=== PATIENT | male | born 1970 | race Caucasian/White ===

== ENCOUNTER 2016-12-05 22:35 | Inpatient (IN) | payer BC ==
[~2016-12-05] VITALS: Ht 180.3 cm; Wt 117.5 kg
[~2016-12-05 22:35] MED LIST: CIPROFLOXACIN500 MG PO; OMEPRAZOLE40 MG PO; VICODIN1 TAB PO
[2016-12-05] MEDS ORDERED: SIMVASTATIN5 MG PO (22:44)
[2016-12-05] MEDS ORDERED: FISH OIL500 M2 PO (22:45)
[2016-12-05] MEDS ORDERED: ZOLOFT25 MG PO (22:45)
[2016-12-05] MEDS ORDERED: ASPIRIN CHEWABL81 MG PO (22:45)
[2016-12-05 22:47] VITALS: BP 156/96
[2016-12-05 23:08] LABS: BASO % 0.1 % (0.0-1.0); EOS % 0.6 % (1.0-4.0); HEMATOCRIT 47.6 % (42.0-52.0); HEMOGLOBIN 16.6 g/dl (14.0-18.0); LYMPH % 14.6 % (27.0-41.0); MEAN CELL VOLUME 85.9 fl (80.0-94.0); MEAN CORPUSCULAR HGB CONC 34.9 g/dl (33.0-37.0); MEAN PLATELET VOLUME 9.1 fl (9.6-12.3); MONO # 0.7 10*3/uL (0.1-1.0); MONO % 9.2 % (3.0-9.0); NEUT # 5.4 10*3/uL (2.3-7.9); NEUT % 75.1 % (47.0-73.0); PLATELET COUNT AUTOMATED 178 10*3/uL (130-400); RED BLOOD COUNT 5.54 10*6/uL (4.50-5.90); RED CELL DISTRI WIDTH 12.7 % (0-14.5); WHITE BLOOD COUNT 7.1 10*3/uL (4.8-10.8)
[2016-12-05 23:22] LABS: ALBUMIN 3.8 gm/dl (3.1-4.5); ALKALINE PHOSPHATASE 114 U/L (45-117); BILIRUBIN, TOTAL 1.7 mg/dl (0.2-1.0); BUN 17 mg/dl (7-24); CARBON DIOXIDE 25 mmol/L (21-32); CHLORIDE 106 mmol/L (98-107); EST GLOM FILT AFRICAN AMERICAN > 60 ml/min; GLUCOSE 148 mg/dL (65-99); POTASSIUM 3.7 mmol/L (3.5-5.1); SGOT/AST 325 IU/L (3-35); SGPT/ALT 573 U/L (12-78); SODIUM 140 mmol/L (136-145); TOTAL PROTEIN 7.9 gm/dL (6.4-8.2)
[2016-12-06 01:33] VITALS: BP 142/87
[2016-12-06 01:45] VITALS: BP 160/88
[2016-12-06] MEDS ORDERED: FISH OIL 1,001000 MG PO (02:05)
[2016-12-06] MEDS ORDERED: ZOLOFT100 MG PO (02:06)
[2016-12-06] MEDS ORDERED: SIMVASTATIN20 MG PO (02:07)
[2016-12-06 06:11] LABS: BASO % 0.3 % (0.0-1.0); EOS # 0.1 10*3/uL (0.0-0.4); EOS % 1.1 % (1.0-4.0); HEMATOCRIT 45.9 % (42.0-52.0); HEMOGLOBIN 15.5 g/dl (14.0-18.0); LYMPH # 1.3 10*3/uL (1.3-4.4); LYMPH % 19.1 % (27.0-41.0); MEAN CELL VOLUME 88.6 fl (80.0-94.0); MEAN CORPUSCULAR HGB 29.9 pg (27.0-31.0); MEAN CORPUSCULAR HGB CONC 33.8 g/dl (33.0-37.0); MEAN PLATELET VOLUME 9.1 fl (9.6-12.3); MONO # 0.7 10*3/uL (0.1-1.0); MONO % 10.3 % (3.0-9.0); NEUT # 4.5 10*3/uL (2.3-7.9); NEUT % 68.9 % (47.0-73.0); PLATELET COUNT AUTOMATED 162 10*3/uL (130-400); RED BLOOD COUNT 5.18 10*6/uL (4.50-5.90); RED CELL DISTRI WIDTH 12.8 % (0-14.5); WHITE BLOOD COUNT 6.6 10*3/uL (4.8-10.8)
[2016-12-06 06:38] LABS: ALBUMIN 3.3 gm/dl (3.1-4.5); BILIRUBIN, TOTAL 1.4 mg/dl (0.2-1.0); BUN 15 mg/dl (7-24); CARBON DIOXIDE 29 mmol/L (21-32); CHLORIDE 105 mmol/L (98-107); CHOLESTEROL 120 mg/dL (<200); EST GLOM FILT AFRICAN AMERICAN > 60 ml/min; GLUCOSE 122 mg/dL (65-99); MAGNESIUM 2.1 mg/dL (1.5-2.1); PHOSPHOROUS 3.2 mg/dL (2.5-4.9); SGOT/AST 225 IU/L (3-35); SGPT/ALT 537 U/L (12-78); SODIUM 141 mmol/L (136-145); TRIGLYCERIDES 112 mg/dl (<150); VLDL CHOLESTEROL 22 mg/dL (6-40)
[2016-12-06 06:45] LABS: ALKALINE PHOSPHATASE 102 U/L (45-117); FREE T4 0.93 ng/dl (0.76-1.46); HDL CHOLESTEROL 46 mg/dl (40-60); LDL CHOLESTEROL 52 mg/dL (9-159)
[2016-12-06 06:46] LABS: PROTHROMBIN TIME 10.3 SECONDS (9.0-12.4)
[2016-12-06 08:00] LABS: VITAMIN D, 25-HYDROXY 8.8 ng/mL (30-100)
[2016-12-06 08:01] LABS: FOLIC ACID 13.87 ng/mL (>5.38)
[2016-12-07 15:04] LABS: HEPATITIS C VIRUS ANTIBODY 0.1 s/co (0.0-0.9)
== END 2016-12-06 10:43 | disposition home or self-care (01) | DRG 392 ==
LOC: ED 22:35 → EDHOLD 12-06 01:27 → 4E 12-06 01:31
PROVIDERS: Internal Medicine; Physician Assistant
DX: A08.4 Viral intestinal infection, unspecified (principal); E44.0 Moderate protein-calorie malnutrition; K76.0 Fatty (change of) liver, not elsewhere classified; B17.9 Acute viral hepatitis, unspecified; F33.9 Major depressive disorder, recurrent, unspecified; K21.9 Gastro-esophageal reflux disease without esophagitis; E78.00 Pure hypercholesterolemia, unspecified; E66.09 Other obesity due to excess calories; G47.30 Sleep apnea, unspecified; R73.9 Hyperglycemia, unspecified; D72.825 Bandemia; E74.39 Other disorders of intestinal carbohydrate absorption; Z68.36 Body mass index [BMI] 36.0-36.9, adult; Z79.82 Long term (current) use of aspirin; Z88.0 Allergy status to penicillin; Z82.49 Family history of ischemic heart disease and other diseases of the circulatory system; Z82.61 Family history of arthritis; Z80.8 Family history of malignant neoplasm of other organs or systems; Z90.49 Acquired absence of other specified parts of digestive tract; Z79.899 Other long term (current) drug therapy; Z98.52 Vasectomy status; Z83.3 Family history of diabetes mellitus

== ENCOUNTER → 2016-12-08 | Outpatient (CLI) | payer BC ==
[~2016-12-08] MED LIST changes: +ASPIRIN CHEWABL81 MG PO; +FISH OIL 1,001000 MG PO; +FISH OIL500 M2 PO; +SIMVASTATIN20 MG PO; +SIMVASTATIN5 MG PO; +ZOLOFT100 MG PO; +ZOLOFT25 MG PO
[2016-12-08 15:01] LABS: ALBUMIN 3.5 gm/dl (3.1-4.5); BILIRUBIN, DIRECT 0.2 mg/dL (0.0-0.2); BILIRUBIN, TOTAL 0.8 mg/dl (0.2-1.0); TOTAL PROTEIN 7.4 gm/dL (6.4-8.2)
== END | disposition home or self-care (01) ==
LOC: LAB 14:17
PROVIDERS: Nurse Practitioner Family
DX: R79.89 Other specified abnormal findings of blood chemistry (principal)

== ENCOUNTER 2023-09-17 00:03 | Emergency (ER) | payer OTHER ==
[~2023-09-17] VITALS: Ht 180.3 cm; Wt 119.7 kg
[2023-09-17] MEDS ORDERED: Ondansetron Hydrochloride 4 MG/2 ML VIAL IV ONE (01:55)
[2023-09-17] MEDS ORDERED: SODIUM CHLORIDE 0.9% 1,000 ML IV ONE (01:55)
[2023-09-17 02:03] LABS: BASO % 0.3 % (0.0-1.0); EOS # 0.1 10*3/uL (0.0-0.4); EOS % 0.7 % (1.0-4.0); HEMATOCRIT 46.5 % (42.0-52.0); LYMPH # 0.9 10*3/uL (1.3-4.4); LYMPH % 8.3 % (27.0-41.0); MEAN CELL VOLUME 86.6 fl (80.0-94.0); MEAN CORPUSCULAR HGB CONC 34.6 g/dl (33.0-37.0); MEAN PLATELET VOLUME 8.8 fl (9.6-12.3); MONO # 0.5 10*3/uL (0.1-1.0); MONO % 4.8 % (3.0-9.0); NEUT # 9.7 10*3/uL (2.3-7.9); NEUT % 85.6 % (47.0-73.0); PLATELET COUNT AUTOMATED 208 10*3/uL (130-400); RED BLOOD COUNT 5.37 10*6/uL (4.50-5.90); RED CELL DISTRI WIDTH 12.1 % (0-14.5); WHITE BLOOD COUNT 11.3 10*3/uL (4.8-10.8)
[2023-09-17] MEDS ORDERED: EFFIENT10 M1 PO (02:13)
[2023-09-17] MEDS ORDERED: ZESTRIL20 MG PO (02:14)
[2023-09-17] MEDS ORDERED: LOPRESSOR25 MG PO (02:14)
[2023-09-17] MEDS ORDERED: LIPITOR20 MG PO (02:15)
[2023-09-17] MEDS ORDERED: MELATONIN5 M1 PO (02:16)
[2023-09-17] MEDS ORDERED: ZYRTEC10 M2 PO (02:17)
[2023-09-17] MEDS ORDERED: GLIMEPIRIDE2 MG PO (02:17)
[2023-09-17 02:25] LABS: ALKALINE PHOSPHATASE 67 U/L (46-116); BUN 22 mg/dl (9-23); CHLORIDE 101 mmol/L (98-107); LIPASE 48 U/L (12-53); POTASSIUM 3.5 mmol/L (3.4-5.1); SGPT/ALT 80 U/L (5-49); TOTAL PROTEIN 7.6 gm/dL (6.0-8.0)
[2023-09-17] MEDS ORDERED: ONDANSETRON4 MG SL (03:09)
== END 2023-09-17 03:20 | disposition home or self-care (01) ==
LOC: ED 00:03
PROVIDERS: Internal Medicine
DX: A08.4 Viral intestinal infection, unspecified (principal); Z20.822 Contact with and (suspected) exposure to COVID-19; R11.2 Nausea with vomiting, unspecified; R19.7 Diarrhea, unspecified; E78.00 Pure hypercholesterolemia, unspecified; Z88.0 Allergy status to penicillin; Z90.49 Acquired absence of other specified parts of digestive tract; Z90.89 Acquired absence of other organs; Z98.890 Other specified postprocedural states